=== PATIENT | female | born 1980 | race Caucasian/White ===

== ENCOUNTER 2018-01-12 17:26 | Observation (INO) | payer BC ==
[~2018-01-12 17:26] MED LIST: Ondansetron 4 MG/2 ML SDV IV PRN
--- NOTE | 2018-01-12 17:37 | PCM.HP ---
H&P History of Present Illness - General Date of Service: 01/12/18 Admit Problem/Dx: Admission Diagnosis/Problem Admission Diagnosis/Problem Pneumothorax on right Source of Information: Patient History Limitations: Reports: No Limitations - History of Present Illness Initial Comments - Free Text/Narative: 37 yo wf who was seen in clinic today with a complaint of some chest discomfort. CXR demonstrated a spontaneous pneumothorax. She was oxygenating without difficulty. She reports that she has had similar episodes with the past. She states that the feeling lasts for several weeks then resolves. She has a previous hx of smoking but does not do so recently. 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 Social & Family History - Tobacco Use Smoking Status *Q: Former Smoker - Alcohol Use Alcohol Use History: Yes Total Drinks Per Week Comment: 4 H&P Review of Systems - Review of Systems: Review Of Systems: See Below General: Reports: No Symptoms HEENT: Reports: No Symptoms Pulmonary: Denies: Shortness of Breath, Wheezing Cardiovascular: Reports: No Symptoms Gastrointestinal: Reports: No Symptoms Neurological: Reports: No Symptoms Exam - Exam Exam: See Below - Vital Signs Vital Signs: Last Vital Signs Temp 36.7 C 01/12/18 16:55 Pulse 87 01/12/18 16:55 Resp 16 01/12/18 16:55 BP 118/85 01/12/18 16:55 Pulse Ox 100 01/12/18 16:55 - Exam General: Alert, Oriented, Cooperative Lungs: Clear to Auscultation, Normal Respiratory Effort Cardiovascular: Regular Rate, Regular Rhythm GI/Abdominal Exam: Normal Bowel Sounds - Patient Data Imaging Impressions Last 24 hrs: 40-60% pneumothorax on the right - Problem List (1) Spontaneous pneumothorax SNOMED Code(s): 66227274 ICD Code: J93.83 - OTHER PNEUMOTHORAX Status: Acute Current Visit: Yes Problem List Initiated/Reviewed/Updated: Yes Orders Last 24hrs: Active Orders 24 hr Category Date Time Status Patient Status [ADT] Routine ADT 01/12/18 17:26 Ordered Notify Provider Vital Signs [RC] ASDIRECTED Care 01/12/18 17:28 Ordered Oxygen Therapy [RC] CONTINUOUS Care 01/12/18 17:26 Ordered VTE/DVT Education [RC] Per Unit Routine Care 01/12/18 17:26 Ordered Vital Signs [RC] Q4H Care 01/12/18 17:26 Ordered Regular Diet [DIET] Diet 01/12/18 Dinner Ordered CXR [Chest 1V Frontal] [CR] Stat Exams 01/12/18 17:25 Ordered Chest 1V Frontal [CR] AM Exams 01/13/18 05:11 Ordered Acetaminophen/HYDROcodone [[place] 325-5 MG] Med 01/12/18 17:26 Ordered 1 tab PO Q4H PRN Ondansetron [Zofran] Med 01/12/18 17:26 Ordered 4 mg IV Q6H PRN Sodium Chloride 0.9% [Saline Flush] Med 01/12/18 17:26 Ordered 10 ml FLUSH ASDIRECTED PRN Peripheral IV Insertion Adult [OM.PC] Routine Oth 01/12/18 17:26 Ordered Saline Lock Insert [OM.PC] Routine Oth 01/12/18 17:26 Ordered Sequential Compression Device [OM.PC] Per Unit Routine Oth 01/12/18 17:29 Ordered Resuscitation Status Routine Resus Stat 01/12/18 17:26 Ordered Assessment/Plan Comment:: Heimlich valve placed in ED observation care overnight. if lung stays expanded will d/c in am.
--- NOTE | 2018-01-12 17:48 | PCM.OPNOTE ---
- General Post-Op/Procedure Note Date of Surgery/Procedure: 01/12/18 Operative Procedure(s): 8 Fr chest tube with Heimlich valve placement Findings: expansion of lung post procedure Pre Op Diagnosis: spontaneous pneumothorax right Post-Op Diagnosis: Same Anesthesia Technique: Local (1 % lido) Primary Surgeon: Oliverio Bishop EBL in mLs: 1 Surgical Drain/Tube Type: NPWT Drainage Amount, Self Contained Complications: None Condition: Good Free Text/Narrative:: see dictation
[2018-01-12] MEDS: Acetaminophen/HYDROcodone 325-5 MG Tab PO PRN ×2 (17:53→22:23)
[2018-01-12] MEDS: Sodium Chloride 0.9% 10 ML Syringe FLUSH PRN ×2 (19:08→19:17)
[2018-01-12] MEDS: Ketorolac 30 MG/ML SDV IVPUSH SCH (19:12)
[2018-01-13] MEDS: Ketorolac 30 MG/ML SDV IVPUSH SCH ×2 (00:18→05:49)
[2018-01-13] MEDS: Sodium Chloride 0.9% 10 ML Syringe FLUSH PRN ×2 (00:20→05:50)
[2018-01-13] MEDS: Acetaminophen/HYDROcodone 325-5 MG Tab PO PRN ×2 (02:26→07:33)
[2018-01-13] MEDS ORDERED: Carboxymethylcellulose Sodium 0.5% Ophth Soln 15 ML Bottle EYEBOTH PRN (07:29)
--- NOTE | 2018-01-13 08:42 | OR ---
DATE OF OPERATION: 01/12/2018 SURGEON: Oliverio Bishop MD PROCEDURE PERFORMED: #8-[place]banian chest tube placement in right chest. PREOPERATIVE DIAGNOSIS: Spontaneous pneumothorax of the right chest. POSTOPERATIVE DIAGNOSIS: Spontaneous pneumothorax of the right chest. INDICATIONS FOR PROCEDURE: This is a 37-year-old white female, who presented to the clinic today with a complaint of some chest discomfort. She has a history of having some chest discomfort that occurs every six months or so, that results in basically a pulling sensation in her chest, and then it resolves in a week or so. Today, she presented with similar complaints, and was noted on chest x-ray to have what appears to be a pneumothorax of possibly 40% to 60%. She was offered and accepted a chest tube with Heimlich valve placement. DESCRIPTION OF OPERATION: After the patient was prepped and draped in the usual sterile manner, approximately 10 mL of 1:1 mixture of 1% lidocaine with epinephrine and 0.5% bupivacaine was used to infiltrate the area over the maximal area of the pneumothorax, which is in the right lower lung field. On entering the chest cavity, we had aspiration of free air. A stab incision was then made and the catheter was inserted, and it was hooked up to the Heimlich valve and then sewn into position with 0 black silk. The patient reported that her breathing sensation had improved after several minutes, with the initial discomfort resolving. Postoperative x-ray reveals that her lung appears to have expanded significantly, not quite resolved, but the bulk of the pneumothorax appears to be better. The patient tolerated the procedure well, and will be watched overnight on 100% oxygen. /[id number] /MODL
--- NOTE | 2018-01-13 11:10 | PCM.SURGPN ---
- General Info Date of Service: 01/13/18 POD#: 1 Functional Status: Reports: Pain Controlled. Denies: New Symptoms - Review of Systems Pulmonary: Reports: No Symptoms Cardiovascular: Reports: No Symptoms - Patient Data Vitals - Most Recent: Last Vital Signs Temp 36.6 C 01/13/18 07:25 Pulse 67 01/13/18 07:25 Resp 18 01/13/18 07:25 BP 115/78 01/13/18 07:25 Pulse Ox 100 01/13/18 07:25 Weight - Most Recent: 51.029 kg I&O - Last 24 Hours: Intake & Output 01/12/18 01/13/18 01/13/18 22:59 06:59 14:59 Intake Total 100 Balance 100 Med Orders - Current: Current Medications Hydrocodone Bitart/Acetaminophen ([place] 325-5 Mg) 1 tab PO Q4H PRN PRN Reason: Pain (moderate 4-6) Last Admin: 01/13/18 07:33 Dose: 1 tab Artificial Tears (Refresh Tears 0.5%) 0 ml EYEBOTH ASDIRECTED PRN PRN Reason: DRY EYES Last Admin: 01/13/18 08:28 Dose: 2 drop Ketorolac Tromethamine (Toradol) 30 mg IVPUSH Q6H NILESH Stop: 01/17/18 17:52 Last Admin: 01/13/18 05:49 Dose: 30 mg Ondansetron HCl (Zofran) 4 mg IV Q6H PRN PRN Reason: Nausea/Vomiting Sodium Chloride (Saline Flush) 10 ml FLUSH ASDIRECTED PRN PRN Reason: Keep Vein Open Last Admin: 01/13/18 05:50 Dose: 10 ml - Exam Wound/Incisions: Healing Well, Dressing Dry and Intact Lungs: Clear to Auscultation, Normal Respiratory Effort - Problem List & Annotations (1) Spontaneous pneumothorax SNOMED Code(s): 71391564 Code(s): J93.83 - OTHER PNEUMOTHORAX Status: Acute Current Visit: Yes Annotation/Comment:: cxr today shows lung is up - Problem List Review Problem List Initiated/Reviewed/Updated: Yes - My Orders Last 24 Hours: Active Orders 24 hr Category Date Time Status Patient Status [ADT] Routine ADT 01/12/18 17:26 Active Notify Provider Vital Signs [RC] ASDIRECTED Care 01/12/18 17:28 Active Oxygen Therapy [RC] CONTINUOUS Care 01/12/18 17:26 Active Ready for Discharge [RC] PER UNIT ROUTINE Care 01/13/18 11:08 Ordered VTE/DVT Education [RC] Per Unit Routine Care 01/12/18 17:26 Active Vital Signs [RC] Q4H Care 01/12/18 17:26 Active Regular Diet [DIET] Diet 01/12/18 Dinner Ordered CXR [Chest 1V Frontal] [CR] Stat Exams 01/12/18 17:25 Taken Chest 1V Frontal [CR] AM Exams 01/13/18 05:11 Taken Acetaminophen/HYDROcodone [[place] 325-5 MG] Med 01/12/18 17:26 Active 1 tab PO Q4H PRN Carboxymethylcellulose Sodium [Refresh Tears 0.5%] Med 01/13/18 07:29 Active 0 ml EYEBOTH ASDIRECTED PRN Ketorolac [Toradol] Med 01/12/18 18:00 Active 30 mg IVPUSH Q6H Ondansetron [Zofran] Med 01/12/18 17:26 Active 4 mg IV Q6H PRN Sodium Chloride 0.9% [Saline Flush] Med 01/12/18 17:26 Active 10 ml FLUSH ASDIRECTED PRN Peripheral IV Insertion Adult [OM.PC] Routine Oth 01/12/18 17:26 Ordered Saline Lock Insert [OM.PC] Routine Oth 01/12/18 17:26 Ordered Sequential Compression Device [OM.PC] Per Unit Routine Oth 01/12/18 17:29 Ordered Resuscitation Status Routine Resus Stat 01/12/18 17:26 Ordered Medication Orders Hydrocodone Bitart/Acetaminophen ([place] 325-5 Mg) 1 tab PO Q4H PRN PRN Reason: Pain (moderate 4-6) Last Admin: 01/13/18 07:33 Dose: 1 tab Admin: 01/13/18 02:26 Dose: 1 tab Admin: 01/12/18 22:23 Dose: 1 tab Admin: 01/12/18 17:53 Dose: 1 tab Artificial Tears (Refresh Tears 0.5%) 0 ml EYEBOTH ASDIRECTED PRN PRN Reason: DRY EYES Last Admin: 01/13/18 08:28 Dose: 2 drop Ketorolac Tromethamine (Toradol) 30 mg IVPUSH Q6H NILESH Stop: 01/17/18 17:52 Last Admin: 01/13/18 05:49 Dose: 30 mg Admin: 01/13/18 00:18 Dose: 30 mg Admin: 01/12/18 19:12 Dose: 30 mg Ondansetron HCl (Zofran) 4 mg IV Q6H PRN PRN Reason: Nausea/Vomiting Sodium Chloride (Saline Flush) 10 ml FLUSH ASDIRECTED PRN PRN Reason: Keep Vein Open Last Admin: 01/13/18 05:50 Dose: 10 ml Admin: 01/13/18 00:20 Dose: 10 ml Admin: 01/12/18 19:17 Dose: 10 ml Admin: 01/12/18 19:08 Dose: 10 ml - Assessment Assessment (Free Text/Narrative):: ready for discharge - Plan Plan (Free Text/Narrative):: see dc instructions
--- NOTE | 2018-01-13 11:23 | CR ---
INDICATION: Spontaneous pneumothorax, treated by right chest tube with Heimlich valve. CHEST: An AP upright view of the chest was obtained 01/13/2018 at 0746 hours, again revealing a right chest tube in place. The previous pneumothorax seen on the right has completely involuted with complete reexpansion of the right lung. Only very minimal residual atelectatic changes remain at the right lower lung field. No other change or new acute process was identified. IMPRESSION: Findings are compatible with complete reexpansion of the right lung - post right chest tube placement. MTDD
--- NOTE | 2018-01-13 11:38 | CR ---
INDICATION: Spontaneous pneumothorax. Heimlich valve placement - right chest tube. CHEST: A single AP upright view of the chest 01/12/2018 was compared with 01/12 from the clinic and again shows evidence of pneumothorax, but now only localized to the right lower chest with a chest tube now in place on the right. The lung is largely reexpanded, except for the localized area of pneumothorax at the right costophrenic angle and lower lateral pleural space. Some atelectatic change of minimal degree is suggested in that area. No shift of midline structures was seen. No other evidence of an acute process was identified. IMPRESSION: Largely reexpanded right lung after chest tube placement. Continued follow-up recommended. [facility]
== END 2018-01-13 11:40 | disposition home or self-care (01) ==
LOC: FB.SDS 17:26 → FB.MS 17:27
PROVIDERS: ADMIT Surgery; ATTEND Surgery
DX: J93.83 Other pneumothorax (principal); Z87.891 Personal history of nicotine dependence
CPT/HCPCS: 32551; 71045; A9270; J1885; J7050; 96374; 96376; G0378; G0379